=== PATIENT | female | born 1985 | race African-American/Black ===

== ENCOUNTER 2019-06-05 09:34 | Emergency (ER) | payer OTHER ==
[~2019-06-05] VITALS: Ht 154.9 cm; Wt 133.8 kg
[~2019-06-05 09:34] MED LIST: HYDR-2761 PO; IBUP-1060 PO
[2019-06-05 09:40] VITALS: BP 136/76
[2019-06-05 10:04] LABS: BILIRUBIN,URINE NEGATIVE (NEG); CLARITY,URINE CLEAR; COLOR,URINE YELLOW; NITRITE,URINE NEGATIVE (NEG); PROTEIN,URINE NEGATIVE (NEG-TRACE)
--- NOTE | 2019-06-05 10:05 | PHYS DOC ---
Past Medical History Past Medical History: Other Additional Past Medical Histor: endometriosis Past Surgical History: Tubal ligation, Other Alcohol Use: Occasionally Drug Use: None Adult General Chief Complaint Chief Complaint: PAIN ON URINATION [facility] HPI Patient is a 34 year old female who presents with frequent urination and dysuria this been ongoing since last night. The patient denies any other complaints. Denies fever. The patient rates her pain as 5 out of 10 in severity and sharp. Review of Systems Review of Systems Constitutional: Denies fever or chills [] Eyes: Denies change in visual acuity, redness, or eye pain [] HENT: Denies nasal congestion or sore throat [] Respiratory: Denies cough or shortness of breath [] Cardiovascular: No additional information not addressed in HPI [] GI: Denies abdominal pain, nausea, vomiting, bloody stools or diarrhea [] : Reports dysuria and frequency. Musculoskeletal: Denies back pain or joint pain [] Integument: Denies rash or skin lesions [] Neurologic: Denies headache, focal weakness or sensory changes [] Complete systems were reviewed and found to be within normal limits, except as documented in this note. Allergies Allergies Allergies Coded Allergies Type Severity Reaction Last Updated Verified No Known Drug Allergies 05/22/16 No Physical Exam Physical Exam Constitutional: Well developed, well nourished, no acute distress, non-toxic appearance. [] HENT: Normocephalic, atraumatic, bilateral external ears normal, oropharynx moist, no oral exudates, nose normal. [] Eyes: PERRLA, EOMI, conjunctiva normal, no discharge. [] Neck: Normal range of motion, no tenderness, supple, no stridor. [] Cardiovascular:Heart rate regular rhythm, no murmur [] Lungs & Thorax: Bilateral breath sounds clear to auscultation [] Abdomen: Bowel sounds normal, soft, no tenderness, no masses, no pulsatile anaid s. [] Skin: Warm, dry, no erythema, no rash. [] Back: No tenderness, no CVA tenderness. [] Extremities: No tenderness, no cyanosis, no clubbing, ROM intact, no edema. [] Neurologic: Alert and oriented X 3, normal motor function, normal sensory function, no focal deficits noted. [] Psychologic: Affect normal, judgement normal, mood normal. [] Current Patient Data Vital Signs Vital Signs Date Time Temp Pulse Resp B/P (MAP) Pulse Ox O2 Delivery O2 Flow Rate FiO2 06/05/19 09:40 97.8 76 18 136/76 (96) 97 97.8 Lab Values Laboratory Tests Test 06/05/19 09:50 Urine Collection Type Unknown Urine Color Yellow Urine Clarity Clear Urine pH 6.0 Urine Specific [place] 1.020 Urine Protein Negative mg/dL (NEG-TRACE) Urine Glucose (UA) Negative mg/dL (NEG) Urine Ketones (Stick) Negative mg/dL (NEG) Urine Blood Moderate (NEG) Urine Nitrite Negative (NEG) Urine Bilirubin Negative (NEG) Urine Urobilinogen Dipstick 1.0 mg/dL (0.2 mg/dL) Urine Leukocyte Esterase Large (NEG) Urine RBC 20-40 /HPF (0-2) Urine WBC Tntc /HPF (0-4) Urine Bacteria Moderate /HPF (0-FEW) EKG EKG [] Radiology/Procedures Radiology/Procedures [] Course & Med Decision Making Course & Med Decision Making Pertinent Labs and Imaging studies reviewed. (See chart for details) Will get UA. UA shows leukocytes with moderate bacteria. Dragon Disclaimer Dragon Disclaimer This electronic medical record was generated, in whole or in part, using a voice recognition dictation system. Departure Departure Impression: Primary Impression: Urinary tract infection Disposition: 01 HOME, SELF-CARE Condition: STABLE Referrals: YAMILETH VARGAS MD (PCP) Patient Instructions: Urinary Tract Infection Additional Instructions: Thank you for visiting [facility]. We appreciate you trusting us with your care. If any additional problems come up don't hesitate to return to visit us. Please follow up with your primary care provider so they can plan additional care if needed and know about the problem that you had. If symptoms worsen come back to the Emergency Department. Any concerning symptoms that start such as chest pain, shortness of air, weakness or numbness on one side of the body, running high fevers or any other concerning symptoms return to the ER. You have been prescribed an antibiotic today to help fight your infection. Please take all of the antibiotic as directed. If after 48 hours the infection is not improving, please return for more care. If the infection worsens, return to ER for additional care. Scripts Cephalexin (KEFLEX) 500 Mg Capsule 1 CAP PO BID for 7 Days, #14 CAP 0 Refills Prov: CHALINO MANNING APRN 06/05/19 Problem Qualifiers Primary Impression: Urinary tract infection Urinary tract infection type: acute cystitis Hematuria presence: without hematuria Qualified Codes: N30.00 - Acute cystitis without hematuria CHALINO MANNING APRN Jun 05, 2019 10:05
[2019-06-05 10:12] LABS: BACTERIA,URINE MODERATE /HPF (0-FEW); RBC,URINE 20-40 /HPF (0-2); WBC,URINE TNTC /HPF (0-4)
[2019-06-05] MEDS ORDERED: CEPH-264 PO (10:32)
== END 2019-06-05 10:41 | disposition home or self-care (01) ==
LOC: ER 09:34
DX: N30.00 Acute cystitis without hematuria (principal); Z98.51 Tubal ligation status
CPT/HCPCS: 81001; 87086; 99284

== ENCOUNTER 2020-02-28 15:46 | Emergency (ER) | payer OTHER ==
[~2020-02-28] VITALS: Ht 154.9 cm; Wt 133.0 kg
[~2020-02-28 15:46] MED LIST changes: +CEPH-264 PO
[2020-02-28 17:20] VITALS: BP 145/81
--- NOTE | 2020-02-28 18:09 | RAD ---
PROCEDURE: ANKLE RIGHT 3V STUDY DATE: 02/28/2020 CLINICAL INDICATION / HISTORY: Reason: TWISTED ANKLE, HEARD POP, NON AMBULATORY / Spl. Instructions: / History: . TECHNIQUE: Right ankle 3 views. COMPARISON: None FINDINGS: The ankle mortise is approximated, and the talar dome is unremarkable. The joint space widths are maintained. No fracture or dislocation is identified. Mild circumferential soft tissue swelling is appreciated, more conspicuous over the lateral malleolus. IMPRESSION: Findings compatible with a right ankle sprain. No fracture or malalignment shown. Electronically signed by: Jennifer Shearer MD (02/28/2020 6:06 PM) [facility] – [place]
[2020-02-28] MEDS ORDERED: KETOROLAC 60 MG/2 ML VIAL. IM ONE (18:15)
--- NOTE | 2020-02-28 18:34 | PHYS DOC ---
Past Medical History Past Medical History: Other Additional Past Medical Histor: endometriosis Past Surgical History: Tubal ligation, Other Smoking Status: Never Smoker Alcohol Use: Occasionally Drug Use: None General Adult EDM: Chief Complaint: ANKLE PROBLEM HPI: HPI: Patient is a 35 year old female who presents with right ankle pain after reportedly twisting that 2 days ago and hearing a pop. She states that she initially did not seek care because it did not hurt so much and she was able to ambulate with it. Patient states since then her pain is gone up to a 10/10 pain scale and she is unable to walk without it hurting very badly. Patient states she has not taken anything for the pain since the initial injury. Patient denies fever chills, vision changes, nasal congestion or sore throat. Patient denies cough or shortness of breath, chest pain or edema to her extremities. Patient denies abdominal pain, nausea, vomiting, bloody stools, or diarrhea. Patient denies any problems urinating, increased urination, or increased thirst. Patient denies any back or joint pains other than her right ankle. Patient denies any skin rashes, headaches, focal weaknesses, or sensory changes. Patient denies any swelling of her glands, patient denies any depression, anxiety, or recent life changes. 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 Review of Systems: Review of Systems: Constitutional: Denies fever or chills. Eyes: Denies change in visual acuity. HENT: Denies nasal congestion or sore throat. Respiratory: Denies cough or shortness of breath. Cardiovascular: Denies chest pain or edema. GI: Denies abdominal pain, nausea, vomiting, bloody stools or diarrhea. : Denies dysuria. Musculoskeletal: Denies back pain. Complains of right inner ankle pain. Patient denies pain to all other extremities or joints. Integument: Denies rash. Neurologic: Denies headache, focal weakness or sensory changes. Endocrine: Denies polyuria or polydipsia. Lymphatic: Denies swollen glands. Psychiatric: Denies depression or anxiety. Heart Score: Risk Factors: Risk Factors: DM, Current or recent (<one month) smoker, HTN, HLP, family history of CAD, obesity. Risk Scores: Score 0 - 3: 2.5% MACE over next 6 weeks - Discharge Home Score 4 - 6: 20.3% MACE over next 6 weeks - Admit for Clinical Observation Score 7 - 10: 72.7% MACE over next 6 weeks - Early Invasive Strategies Family History: Family History: No significant family history related to this visit. Current Medications: Patient denies taking home medications. Current Medications Medications (Trade) Dose Ordered Sig/Aden Start Time Stop Time Status Last Admin Dose Admin Ketorolac Tromethamine (Toradol Im) 60 mg 1X ONCE 02/28/20 18:15 02/28/20 18:16 DC Allergies: Allergies: Patient denies allergies to medications. Allergies Coded Allergies Type Severity Reaction Last Updated Verified No Known Drug Allergies 05/22/16 No Physical Exam: PE: Constitutional: Well developed, well nourished, no acute distress, non-toxic appearance. HENT: Normocephalic, atraumatic, bilateral external ears normal, oropharynx moist, no oral exudates, nose normal. Eyes: PERRLA, EOMI, conjunctiva normal, no discharge. Neck: Normal range of motion, no tenderness, supple, no stridor. Cardiovascular:Heart rate regular rhythm, no murmur Lungs & Thorax: Bilateral breath sounds clear to auscultation Abdomen: Bowel sounds normal, soft, no tenderness, no masses, no pulsatile masses. Skin: Warm, dry, no erythema, no rash. Back: No tenderness, no CVA tenderness. Extremities: Tenderness to medial right ankle without swelling, all other extremities no tenderness, no cyanosis, no clubbing, ROM intact, no edema. Neurologic: Alert and oriented X 3, normal motor function, normal sensory function, no focal deficits noted. Psychologic: Affect normal, judgement normal, mood normal. Current Patient Data: Vital Signs: Vital Signs Date Time Temp Pulse Resp B/P (MAP) Pulse Ox O2 Delivery O2 Flow Rate FiO2 02/28/20 17:20 98.5 92 19 99 98.5 EKG: EKG: [] Radiology/Procedures: Radiology/Procedures: PROCEDURE: ANKLE RIGHT 3V PROCEDURE: ANKLE RIGHT 3V STUDY DATE: 02/28/2020 CLINICAL INDICATION / HISTORY: Reason: TWISTED ANKLE, HEARD POP, NON AMBULATORY / Spl. Instructions: / History: . TECHNIQUE: Right ankle 3 views. COMPARISON: None FINDINGS: The ankle mortise is approximated, and the talar dome is unremarkable. The joint space widths are maintained. No fracture or dislocation is identified. Mild circumferential soft tissue swelling is appreciated, more conspicuous over the lateral malleolus. IMPRESSION: Findings compatible with a right ankle sprain. No fracture or malalignment shown. Electronically signed by: Frida Shearer MD (02/28/2020 6:06 PM) [facility] – [place] DICTATED and SIGNED BY: FRIDA SHEARER MD DATE: 02/28/201805 Course & Med Decision Making: Course & Med Decision Making Pertinent Labs and Imaging studies reviewed. (See chart for details) 35-year-old female patient arrives to the emergency department today complaining of right medial ankle pain after twisting her ankle 2 days ago while at work. Patient states she was initially not seen because it did not hurt so bad, but today it hurts at 10/10 pain and she wants to be seen. Patient also is requesting a work excuse until next . Examination focusing on the right ankle showed no swelling or crepitus of the right ankle full range of motion PROM/AROM. Patient did complain of pain to palpation on the medial malleolar surfaces. Imaging was performed per radiologist no acute fracture or abnormality noted. Patient was given a 60 mg Toradol injection for pain which relieved her pain. An Eusebio wrap and ankle stirrup splint was applied by nursing staff along with crutches with instructions. Patient was given home instructions to use ankle stirrup over the next several days and to follow-up with her family physician if her pain does not resolve soon. Patient was given a work excuse, a prescription for ibuprofen 800 mg. And a work excuse. Reviewed discharge instructions and return to ER concerns with patient. Patient was agreeable to home care and discharge instructions, patient denies any further questions. Dragon Disclaimer: Dragon Disclaimer: This electronic medical record was generated, in whole or in part, using a voice recognition dictation system. Departure Departure Impression: Primary Impression: Right ankle sprain Qualified Codes: S93.401A - Sprain of unspecified ligament of right ankle, initial encounter Disposition: HOME, SELF-CARE Condition: IMPROVED Referrals: YAMILETH VARGAS MD (PCP) Patient Instructions: Ankle Sprain Additional Instructions: Take prescribed medications as directed. Follow-up with your doctor if pain persists. Return to ER for further concerns. Scripts Ibuprofen (IBUPROFEN) 800 Mg Tablet 800 MG PO PRN Q6HRS PRN for INFLAMMATION, #15 TAB 0 Refills Prov: CHALINO CANCINO APRN 02/28/20 Justicifation of Admission Dx: Justifications for Admission: Justification of Admission Dx: N/A CHALINO CANCINO APRN Feb 28, 2020 18:34
[2020-02-28] MEDS ORDERED: IBUP-1060 PO (19:39)
== END 2020-02-28 19:48 | disposition home or self-care (01) ==
LOC: ER 15:46
DX: S93.491A Sprain of other ligament of right ankle, initial encounter (principal); Z98.51 Tubal ligation status; Z98.890 Other specified postprocedural states; X58.XXXA Exposure to other specified factors, initial encounter; Y93.89 Activity, other specified; Y92.89 Other specified places as the place of occurrence of the external cause; Y99.8 Other external cause status
CPT/HCPCS: 29515; 73610; 96372; 99283; J1885